=== PATIENT | male | born 1965 | race Caucasian/White ===

== ENCOUNTER 2025-01-22 23:38 | Inpatient (IN) ==
[2025-01-22 23:50] VITALS: TEMP 99.5
[2025-01-23 00:15] LABS: POC Urine Bilirubin Negative (Negative); POC Urine Blood 50 (Negative); POC Urine Glucose Normal (Normal); POC Urine Ketones 1+ (Small) (Negative); POC Urine Leukocytes Negative (Negative); POC Urine Nitrite Negative (Negative); POC Urine Protein Trace (Negative); POC Urine Urobilinogen Normal (Normal); POC Urine pH 5 (4.5-7.5)
[2025-01-23 00:24] LABS: Appearance Urine Clear (Clear); Bacteria Urine Automated None Seen (None Seen); Bilirubin Urine Negative (Negative); Blood Urine 1+ (Negative); Cast Urine Automated 0-2 /lpf (0-2); Color Urine Yellow; Epithelial Cell Urine Auto 0-2 /hpf (0-2); Glucose Urine UA Negative (Negative); Ketones Urine 1+ (Negative); Leukocyte Esterase Urine Negative (Negative); Nitrite Urine Negative (Negative); Protein Urine Negative (Negative); Specific Gravity Urine 1.016 (1.000-1.030); Urobilinogen Urine Negative (Negative); WBC Urine Automated 0-5 /hpf (0-5); pH Urine 5.5 (4.5-7.5)
[2025-01-23] MEDS: KETOROLAC 30 MG/ML VIAL IV STA (00:42)
[2025-01-23 00:53] LABS: Basophils # (auto) 0.02 K/uL (0.00-0.20); Basophils % (auto) 0.2 %; Eosinophils # (auto) 0.03 K/uL (0.00-0.50); Eosinophils % (auto) 0.2 %; Hematocrit (blood only) 37.8 % (42.0-52.0); Hemoglobin 12.6 g/dl (14.0-18.0); Immature Granulocytes # (auto) 0.06 K/uL (0.01-0.20); Immature Granulocytes % (auto) 0.5 %; Lymphocytes # (auto) 1.23 K/uL (1.20-3.40); Lymphocytes % (auto) 9.4 %; Mean Corpuscular Hemoglobin 27.9 pg (25.0-34.0); Mean Corpuscular Hgb Conc 33.3 g/dL (32.0-36.0); Mean Corpuscular Volume 83.8 fL (80.0-100.0); Mean Platelet Volume 10.2 fL (9.4-12.4); Monocytes % (auto) 9.2 %; Neutrophils # (auto) 10.55 K/uL (1.40-6.50); Neutrophils % (auto) 80.5 %; Platelet Count 235 K/uL (130-400); RDW Coefficient of Variation 12.4 % (11.5-14.5); RDW Standard Deviation 37.4 fL (36.4-46.3); Red Blood Count 4.51 M/uL (4.70-6.10); White Blood Count 13.09 K/ul (4.8-10.8)
[2025-01-23 01:06] LABS: Albumin Globulin Ratio 1.6 (0.9-2); Albumin Level 4.1 gm/dl (3.4-5.0); BUN Creatinine Ratio 13.4 (10-20); Bilirubin,Total 0.9 mg/dl (0.2-1.0); Calcium 9.2 mg/dl (8.6-10.3); Creatinine Clr Calc Pharmacy 67.5 ml/min; Globulin 2.5 gm/dl (2.5-4.0); Potassium 3.6 mmol/L (3.5-5.1); Total Protein 6.6 gm/dl (6.0-8.3)
[2025-01-23] MEDS ORDERED: MoRPHine SULFATE 4 MG/ML 1 ML CARP\\VIAL IV PRN ×2 (01:14→01:27)
[2025-01-23] MEDS: ONDANSETRON INJ 2 MG/ML 2 ML VIAL IV STA (01:22)
[2025-01-23] MEDS: PANTOprazole 40 MG/10 ML SYR IV ONE (01:22)
[2025-01-23] MEDS: SODIUM CHLORIDE 0.9% 1,000 ML IV SCH (01:22)
[2025-01-23] MEDS ORDERED: oxyCODONE HCL IR 5 MG TAB (IMMEDIATE RELEASE) PO PRN (01:27)
[2025-01-23] MEDS ORDERED: PROMETHAZINE 6.25 MG/50.25 ML BAG IV PRN (01:27)
[2025-01-23] MEDS ORDERED: ACETAMINOPHEN 325 MG TAB PO PRN (01:27)
--- NOTE | 2025-01-23 02:18 | History & Physical Report ---
Date of Service January 23, 2025 Assessment & Plan (1) Complicated UTI (urinary tract infection): Plan: Complicated UTI Secondary to obstructive uropathy Recurrent kidney stones No sepsis for now New onset anemia possibly from hematuria Hyperglycemia rule out DM Admit to MedSurg Urine CS, Ceftriaxone Continue Flomax Strain urine Urology consult re: obstructive uropathy N.p.o. in anticipation of procedure Anemia workup, transfuse PRBC if hemoglobin less than 7 and or for symptomatic anemia Check hemoglobin A1c DVT prophylaxis. SCDs re: hematuria causing anemia Full code Patient requesting updates providers. Mr. Fely Cano, contact #[phone]. Text document was generated using [employer] voice recognition software. It may contain grammatical or spelling errors. Kindly contact undersigned for clarification of any documentation item in question. History of Present Illness Chief Complaint: Kidney stone Primary Care Provider: Jeniffer Howard MD (Patient has not met her.) History obtained from patient, family, and records. Medical history significant for urolithiasis. 1 month history of intermittent achy left flank pain with hematuria symptoms and passage of kidney stones. No fever, no chills. Patient refusing ER evaluation as per . Worsening symptoms noted 4 days ago. Patient consulted [facility] ER. CT abdomen pelvis showed 1. Acute left obstructive uropathy. Severe left hydronephrosis with a 0.5 cm stone obstructing the proximal left ureter on series 2 image 32. 2. Left nephrolithiasis. 3. Nonspecific circumferential bladder wall thickening. Recommend correlation with urinalysis. 4. Mildly enlarged prostate. Recommend correlation with serum PSA. Patient discharged on Flomax and pain Rx. Instructed to follow-up with urology outpatient. Improved symptoms with intake of medications despite not passing any stones at home. Patient felt confident about missing a dose of Flomax. Recurrence of achy left flank pain with chills last night. Patient returned to ER for evaluation. 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, visual lead Allergies Allergy/AdvReac Type Severity Reaction Status Date / Time No Known Allergies Allergy Verified 01/23/25 03:37 Home Medications Medication Instructions Recorded Confirmed Type No Known Home Medications 01/23/25 01/23/25 History Past Med/Surg History Problem List Complicated UTI (urinary tract infection) Acute pyelonephritis (Acute) Left ureteral stone (Acute) Hydronephrosis (Acute) Acute flank pain (Acute) Renal colic (Acute) No significant past medical history Family History Other Kidney stone Social History Smoking Status: Never smoker Hx Alcohol Use: No Hx Substance Use: Yes Last Used Substance: Days (ago) Last Used Substance Other:: 01/22/25, AM Substance Use Type Other:: medical marijuana Preferred Language: Bolivian Communication Ability: Effective Sr Vice President Required: No Beliefs That Will Affect Care: None Current Living Situation: Spouse Feels Safe at Home: Yes Assistive Devices: Glasses Assistive Devices Comment: readers Review of Systems Review of Systems: As per HPI, all other systems reviewed and negative Physical Exam Physical Exam: GENERAL: Comfortable, pleasant, no respiratory distress SKIN: Normal color, warm HEENT: [place] palpebral conjunctivae, no ptosis, dry buccal mucosa NECK : Supple, no tenderness CHEST : CTA, no tenderness HEART : RRR, no obvious murmurs ABDOMEN: Some distention, nontender EXTREMITIES : No LE swelling/tenderness, palpable pulses, no other conspicuous deformities noted NEUROLOGIC : Coherent, no facial asymmetry, no other gross focality Results & Data Results & Data Vital Signs (Past 12 Hours) Vital Signs Temp Pulse Resp BP Pulse Ox O2 Del Method 01/22/25 23:46 37.5 C 66 20 132/86 98 Room Air Laboratory Results Laboratory Results WBC 13.09 K/ul (4.8-10.8) H 01/23/25 00:37 RBC 4.51 M/uL (4.70-6.10) L 01/23/25 00:37 Hgb 12.6 g/dl (14.0-18.0) L 01/23/25 00:37 Hct 37.8 % (42.0-52.0) L 01/23/25 00:37 MCV 83.8 fL (80.0-100.0) 01/23/25 00:37 MCH 27.9 pg (25.0-34.0) 01/23/25 00:37 MCHC 33.3 g/dL (32.0-36.0) 01/23/25 00:37 RDW Std Deviation 37.4 fL (36.4-46.3) 01/23/25 00:37 RDW Coeff of [place] 12.4 % (11.5-14.5) 01/23/25 00:37 Plt Count 235 K/uL (130-400) 01/23/25 00:37 MPV 10.2 fL (9.4-12.4) 01/23/25 00:37 Immature Gran % (Auto) 0.5 % 01/23/25 00:37 Neut % (Auto) 80.5 % 01/23/25 00:37 Lymph % (Auto) 9.4 % 01/23/25 00:37 [place] % (Auto) 9.2 % 01/23/25 00:37 Eos % (Auto) 0.2 % 01/23/25 00:37 Baso % (Auto) 0.2 % 01/23/25 00:37 Neut # (Auto) 10.55 K/uL (1.40-6.50) H 01/23/25 00:37 Lymph # (Auto) 1.23 K/uL (1.20-3.40) 01/23/25 00:37 [place] # (Auto) 1.20 K/uL (0.11-0.59) H 01/23/25 00:37 Eos # (Auto) 0.03 K/uL (0.00-0.50) 01/23/25 00:37 Baso # (Auto) 0.02 K/uL (0.00-0.20) 01/23/25 00:37 Immature Gran # (Auto) 0.06 K/uL (0.01-0.20) 01/23/25 00:37 Sodium 134 mmol/L (136-145) L 01/23/25 00:37 Potassium 3.6 mmol/L (3.5-5.1) 01/23/25 00:37 Chloride 101 mmol/L (98-107) 01/23/25 00:37 Carbon Dioxide 27 mmol/L (21-32) 01/23/25 00:37 Anion Gap 6 (3-11) 01/23/25 00:37 BUN 17 mg/dl (6-23) 01/23/25 00:37 Creatinine 1.27 mg/dl (0.6-1.4) 01/23/25 00:37 Est Cr Clr Drug Dosing 67.5 ml/min 01/23/25 00:37 eGFR 65.49 01/23/25 00:37 BUN/Creatinine Ratio 13.4 (10-20) 01/23/25 00:37 Glucose 122 mg/dl (70-99(Fasting)) H 01/23/25 00:37 Calcium 9.2 mg/dl (8.6-10.3) 01/23/25 00:37 Total Bilirubin 0.9 mg/dl (0.2-1.0) 01/23/25 00:37 AST 23 U/L (13-39) 01/23/25 00:37 ALT 15 U/L (7-52) 01/23/25 00:37 Alkaline Phosphatase 62 U/L (34-104) 01/23/25 00:37 Total Protein 6.6 gm/dl (6.0-8.3) 01/23/25 00:37 Albumin 4.1 gm/dl (3.4-5.0) 01/23/25 00:37 Globulin 2.5 gm/dl (2.5-4.0) 01/23/25 00:37 Albumin/Globulin Ratio 1.6 (0.9-2) 01/23/25 00:37 Urine Color Yellow 01/23/25 00:06 Urine Appearance Clear (Clear) 01/23/25 00:06 Urine pH 5.5 (4.5-7.5) 01/23/25 00:06 POC Urine pH 5 (4.5-7.5) 01/23/25 00:09 Ur Specific [place] 1.016 (1.000-1.030) 01/23/25 00:06 Urine Protein Negative (Negative) 01/23/25 00:06 POC Urine Protein Trace (Negative) H 01/23/25 00:09 Urine Glucose (UA) Negative (Negative) 01/23/25 00:06 POC Ur Glucose (UA) Normal (Normal) 01/23/25 00:09 Urine Ketones 1+ (Negative) H 01/23/25 00:06 POC Urine Ketones 1+ (Small) (Negative) H 01/23/25 00:09 Urine Blood 1+ (Negative) H 01/23/25 00:06 POC Urine Blood 50 (Negative) H 01/23/25 00:09 Urine Nitrite Negative (Negative) 01/23/25 00:06 POC Urine Nitrite Negative (Negative) 01/23/25 00:09 Urine Bilirubin Negative (Negative) 01/23/25 00:06 POC Urine Bilirubin Negative (Negative) 01/23/25 00:09 Urine Urobilinogen Negative (Negative) 01/23/25 00:06 POC Urine Urobilinogen Normal (Normal) 01/23/25 00:09 Ur Leukocyte Esterase Negative (Negative) 01/23/25 00:06 POC U Leukocyte Esteras Negative (Negative) 01/23/25 00:09 Urine WBC (Auto) 0-5 /hpf (0-5) 01/23/25 00:06 Urine RBC (Auto) 3-5 /hpf (0-2) H 01/23/25 00:06 U Hyaline Cast (Auto) 0-2 /lpf (0-2) 01/23/25 00:06 U Epithel Cells (Auto) 0-2 /hpf (0-2) 01/23/25 00:06 Urine Bacteria (Auto) None Seen (None Seen) 01/23/25 00:06 CT abdomen pelvis 1. On comparison with previous CT , there interval inferior displacement of calculus into left upper ureter at L4/L5 vertebral level causing upstream gross hydroureteronephrosis . 2. Interval increase in left perinephric /left paracolic gutter fat stranding and thickening of left posterior renal fascia-- Secondary acute pyelonephritis. 3. Tiny calculus seen in left kidney interpolar calyx measuring 3 mm in size. 4. Stable Uncomplicated sigmoid colon diverticulosis. 5. Stable chronic cystitis. 6. Stable mild prostatomegaly.
--- NOTE | 2025-01-23 02:23 | CT Scan Report ---
EXAM: CT abd pelvis wo con CLINICAL HISTORY: flank pain TECHNIQUE: Contiguous axial images were obtained from the level of the diaphragm to the pubic symphysis without intravenous or oral contrast. Coronal and sagittal reconstructions were likewise performed and indicated to increase the sensitivity for detecting clinically relevant pathology. CT scan was performed according to ALARA (as low as reasonably achievable). COMPARISON: 01/19/2025 11:14:00 STAFF ANTISUBMARINE OFFICER FINDINGS: The visualized lung bases are clear. Evaluation of the abdominal and pelvic visceral organs is limited without intravenous contrast. The unenhanced liver, spleen, pancreas, and adrenal glands are grossly unremarkable. The gallbladder is present. The kidneys are normal in size and attenuation. Tiny calculus seen in left kidney interpolar calyx measuring 3 mm in size. A 5.6mm(HU~798) calculus seen in left upper ureter at L4/L5 vertebral level causing upstream gross hydroureteronephrosis with perinephric fat stranding. Fat stranding also seen in left paracolic gutter and thickening of left posterior renal fascia. No adenopathy or fluid collections are seen. No evidence of focal or diffuse bowel wall thickening or evidence of bowel obstruction is seen. Multiple small diverticuli of 2mm seen in sigmoid colon. No inflammatory changes. The appendix is visualized in the right lower quadrant and appears within normal limits. The aorta is normal in caliber. The urinary bladder shows diffuse wall thickening. Mild prostatonegaly with calcification. No aggressive appearing osseous lesions are identified. IMPRESSION: 1. On comparison with previous CT , there interval inferior displacement of calculus into left upper ureter at L4/L5 vertebral level causing upstream gross hydroureteronephrosis . 2. Interval increase in left perinephric /left paracolic gutter fat stranding and thickening of left posterior renal fascia-- Secondary acute pyelonephritis. 3. Tiny calculus seen in left kidney interpolar calyx measuring 3 mm in size. 4. Stable Uncomplicated sigmoid colon diverticulosis. 5. Stable chronic cystitis. 6. Stable mild prostatomegaly. Electronically signed by Zachary Fernandez 01-23-2025 02:19 AM
[2025-01-23] MEDS ORDERED: LORazepam 0.5 MG TAB PO PRN (02:41)
[2025-01-23] MEDS: cefTRIAXone SODIUM 2,000 MG/50 ML BAG IV STA (03:00)
[2025-01-23] MEDS: SODIUM CHLORIDE 0.9% 1,000 ML IV ONE (03:21)
--- NOTE | 2025-01-23 03:51 | Emergency Department Note ---
History of Present Illness General Chief complaint: Kidney Stone Stated complaint: KIDNEY STONE Time Seen by Provider: 01/23/25 00:27 History of Present Illness Maximum Pain Intensity: 2 This is a 59-year-old male presenting to the emergency department for evaluation of left flank pain. The patient was seen and evaluated a few days ago in this department and diagnosed with an obstructing 5 mm ureteral stone. Patient has been taking his at home medications and did have improvement of symptoms yesterday. Pain returned today and is severe. He has felt hot and cold all day, and may have had a fever. He rates his discomfort an 8/10 at worst. It is currently a 2/10. No chest pain, chest tightness, shortness of breath. Home Medications Medication Instructions Recorded Confirmed Type No Known Home Medications 01/23/25 01/23/25 History Allergies Allergy/AdvReac Type Severity Reaction Status Date / Time No Known Allergies Allergy Verified 01/23/25 03:37 Past Med/Surg History Problem List (Updated 01/23/25 @ 03:51 by Oscar Figueroa PA-C) Acute pyelonephritis (Acute) Left ureteral stone (Acute) Hydronephrosis (Acute) Acute flank pain (Acute) Renal colic (Acute) No significant past medical history Family History Other Kidney stone Social History Smoking Status: Never smoker Hx Alcohol Use: No Hx Substance Use: Yes Last Used Substance: Days (ago) Last Used Substance Other:: 01/22/25, AM Substance Use Type Other:: medical marijuana Preferred Language: Bolivian Communication Ability: Effective Sybase Developer Required: No Beliefs That Will Affect Care: None Current Living Situation: Spouse Feels Safe at Home: Yes Assistive Devices: Glasses Assistive Devices Comment: readers Review of Systems A total of 10 systems reviewed and were otherwise negative Physical Exam Vital Signs Vital Signs - 24 hr 01/22/25 23:46 01/23/25 02:00 Temperature 37.5 C Temperature Source Oral Pulse Rate 66 Pulse Rate [Apical] 63 Pulse Rhythm [Apical] Regular Respiratory Rate 20 16 Respiratory Effort / Characteristics Non-Labored Spontaneous Respiratory Depth Normal Respiratory Pattern Regular Blood Pressure 132/86 Blood Pressure [Right Arm] 129/75 Blood Pressure Mean 101 Blood Pressure Mean [Right Arm] 93 Pulse Oximetry 98 98 Oxygen Delivery Method Room Air Room Air Sepsis Recent Fever Within 48 Hours Yes Sepsis New/Unexplained Change in Mental Status No Sepsis Action Taken by Nursing No Action Required VITALS: Vitals are noted on the nurse's note and reviewed by myself. Vital signs stable. GENERAL: Well-developed, well-nourished, white male, who is in no acute distress and resting comfortably. Patient is cooperative with the examination. HEAD: Normocephalic atraumatic. MOUTH: Mucous membranes moist. Tonsils are not enlarged. Pharynx without erythema, blood, or exudate. Uvula midline. Airway patent. NECK: Supple without nuchal rigidity. No lymphadenopathy. No thyromegaly. Cervical spine is nontender. HEART: Regular rate and rhythm without murmurs gallops or rubs. LUNGS: Clear to auscultation bilaterally without wheezes, rales or rhonchi. No retractions or accessory muscle use. ABDOMEN: Positive normal bowel sounds x 4. Soft, nontender, without masses or organomegaly. No guarding or rebound tenderness. MUSCULOSKELETAL: No muscle atrophy, erythema, or edema noted. Full range of motion in all extremities. Course Administered Medications Sodium Chloride (Nss) 1,000 mls @ 100 mls/hr IV .Q10H ONE Stop: 01/23/25 13:29 Last Admin: 01/23/25 03:21 Dose: 100 mls/hr Documented By: OPHELIA Discontinued Medications Pantoprazole Sodium (Protonix) 40 mg in 10 mls @ 5 mls/min IV NOW ONE Stop: 01/23/25 01:15 Last Admin: 01/23/25 01:22 Dose: 5 mls/min Documented By: HARPER Sodium Chloride (Nss) 1,000 mls @ 999 mls/hr IV .Q1H1M DILLON Stop: 01/23/25 03:15 Last Infusion: 01/23/25 03:25 Dose: Infused Documented By: Admin: 01/23/25 02:14 Dose: 999 mls/hr Documented By: Infusion: 01/23/25 02:13 Dose: Infused Documented By: Admin: 01/23/25 01:22 Dose: 999 mls/hr Documented By: HARPER Ceftriaxone Sodium (Rocephin) 2,000 mg in 50 mls @ 100 mls/hr IV NOW STA Stop: 01/23/25 02:57 Last Infusion: 01/23/25 03:33 Dose: Infused Documented By: Admin: 01/23/25 03:00 Dose: 100 mls/hr Documented By: EMY Ketorolac Tromethamine (Ketorolac 30 Mg/Ml Vial) 30 mg IV NOW STA Stop: 01/23/25 00:41 Last Admin: 01/23/25 00:42 Dose: 30 mg Documented By: NALINIB Ondansetron HCl (Ondansetron Inj 2 Mg/Ml 2 Ml Vial) 4 mg IV NOW STA Stop: 01/23/25 01:15 Last Admin: 01/23/25 01:22 Dose: 4 mg Documented By: HARPER Medical Decision Making Differential Diagnosis Differential diagnosis: Etiologies such as shingles, pyelonephritis/UTI, renal colic, appendicitis, diverticulitis, mesenteric ischemia, torsion, aortic pathology, infections, inflammatory bowel disease, bowel obstruction, PUD, biliary pathology, as well as others were entertained. Laboratory Data 01/23/25 00:37 01/23/25 00:37 Lab Results 01/23/25 01/23/25 01/23/25 Range/Units 00:06 00:09 00:37 WBC 13.09 H (4.8-10.8) K/ul RBC 4.51 L (4.70-6.10) M/uL Hgb 12.6 L (14.0-18.0) g/dl Hct 37.8 L (42.0-52.0) % MCV 83.8 (80.0-100.0) fL MCH 27.9 (25.0-34.0) pg MCHC 33.3 (32.0-36.0) g/dL RDW Std Deviation 37.4 (36.4-46.3) fL RDW Coeff of [place] 12.4 (11.5-14.5) % Plt Count 235 (130-400) K/uL MPV 10.2 (9.4-12.4) fL Immature Gran % (Auto) 0.5 % Neut % (Auto) 80.5 % Lymph % (Auto) 9.4 % [place] % (Auto) 9.2 % Eos % (Auto) 0.2 % Baso % (Auto) 0.2 % Neut # (Auto) 10.55 H (1.40-6.50) K/uL Lymph # (Auto) 1.23 (1.20-3.40) K/uL [place] # (Auto) 1.20 H (0.11-0.59) K/uL Eos # (Auto) 0.03 (0.00-0.50) K/uL Baso # (Auto) 0.02 (0.00-0.20) K/uL Immature Gran # (Auto) 0.06 (0.01-0.20) K/uL Sodium 134 L (136-145) mmol/L Potassium 3.6 (3.5-5.1) mmol/L Chloride 101 (98-107) mmol/L Carbon Dioxide 27 (21-32) mmol/L Anion Gap 6 (3-11) BUN 17 (6-23) mg/dl Creatinine 1.27 (0.6-1.4) mg/dl Est Cr Clr Drug Dosing 67.5 ml/min eGFR 65.49 BUN/Creatinine Ratio 13.4 (10-20) Glucose 122 H (70-99(Fasting)) mg/dl Calcium 9.2 (8.6-10.3) mg/dl Total Bilirubin 0.9 (0.2-1.0) mg/dl AST 23 (13-39) U/L ALT 15 (7-52) U/L Alkaline Phosphatase 62 (34-104) U/L Total Protein 6.6 (6.0-8.3) gm/dl Albumin 4.1 (3.4-5.0) gm/dl Globulin 2.5 (2.5-4.0) gm/dl Albumin/Globulin Ratio 1.6 (0.9-2) Urine Color Yellow Urine Appearance Clear (Clear) Urine pH 5.5 (4.5-7.5) POC Urine pH 5 (4.5-7.5) Ur Specific [place] 1.016 (1.000-1.030) Urine Protein Negative (Negative) POC Urine Protein Trace H (Negative) Urine Glucose (UA) Negative (Negative) POC Ur Glucose (UA) Normal (Normal) Urine Ketones 1+ H (Negative) POC Urine Ketones 1+ (Small) H (Negative) Urine Blood 1+ H (Negative) POC Urine Blood 50 H (Negative) Urine Nitrite Negative (Negative) POC Urine Nitrite Negative (Negative) Urine Bilirubin Negative (Negative) POC Urine Bilirubin Negative (Negative) Urine Urobilinogen Negative (Negative) POC Urine Urobilinogen Normal (Normal) Ur Leukocyte Esterase Negative (Negative) POC U Leukocyte Esteras Negative (Negative) Urine WBC (Auto) 0-5 (0-5) /hpf Urine RBC (Auto) 3-5 H (0-2) /hpf U Hyaline Cast (Auto) 0-2 (0-2) /lpf U Epithel Cells (Auto) 0-2 (0-2) /hpf Urine Bacteria (Auto) None Seen (None Seen) Imaging Data Radiologist's Impression: Abdomen/Pelvis CT 01/23/25 00:24 EXAM: CT abd pelvis wo con CLINICAL HISTORY: flank pain TECHNIQUE: Contiguous axial images were obtained from the level of the diaphragm to the pubic symphysis without intravenous or oral contrast. Coronal and sagittal reconstructions were likewise performed and indicated to increase the sensitivity for detecting clinically relevant pathology. CT scan was performed according to ALARA (as low as reasonably achievable). COMPARISON: 01/19/2025 11:14:00 MANAGER SEARCH ENGINE FINDINGS: The visualized lung bases are clear. Evaluation of the abdominal and pelvic visceral organs is limited without intravenous contrast. The unenhanced liver, spleen, pancreas, and adrenal glands are grossly unremarkable. The gallbladder is present. The kidneys are normal in size and attenuation. Tiny calculus seen in left kidney interpolar calyx measuring 3 mm in size. A 5.6mm(HU~798) calculus seen in left upper ureter at L4/L5 vertebral level causing upstream gross hydroureteronephrosis with perinephric fat stranding. Fat stranding also seen in left paracolic gutter and thickening of left posterior renal fascia. No adenopathy or fluid collections are seen. No evidence of focal or diffuse bowel wall thickening or evidence of bowel obstruction is seen. Multiple small diverticuli of 2mm seen in sigmoid colon. No inflammatory changes. The appendix is visualized in the right lower quadrant and appears within normal limits. The aorta is normal in caliber. The urinary bladder shows diffuse wall thickening. Mild prostatonegaly with calcification. No aggressive appearing osseous lesions are identified. IMPRESSION: 1. On comparison with previous CT , there interval inferior displacement of calculus into left upper ureter at L4/L5 vertebral level causing upstream gross hydroureteronephrosis . 2. Interval increase in left perinephric /left paracolic gutter fat stranding and thickening of left posterior renal fascia-- Secondary acute pyelonephritis. 3. Tiny calculus seen in left kidney interpolar calyx measuring 3 mm in size. 4. Stable Uncomplicated sigmoid colon diverticulosis. 5. Stable chronic cystitis. 6. Stable mild prostatomegaly. Electronically signed by Zachary Fernandez 01-23-2025 02:19 AM MDM Narrative Physical exam and history were performed. Nursing notes, EMR, and Medication List were personally reviewed. No social concerns were identified as barriers to patients care. History was provided by the Patient. Patient appears to have left side flank pain bringing him to the ER. He does have a known kidney stone, and is not doing well at home. IV access was established and labs were obtained. Patient was hydrated with normal saline and given IV Toradol, IV morphine, IV Protonix, and IV Zofran. Patient was sent to CT scan for imaging. Patient's blood work is as above and was reviewed. He does have an elevated white count of 13,000. He is slightly anemic at 12.6. Urine is with blood, which was expected. Lipase and transaminases are not diagnostic. Escalation of care was considered, and felt necessary. I did speak with the on- call [facility] hospitalist, who agreed to evaluate the patient here in the ER. The patient CT scan did return with findings consistent with obstructing stone with new pyelonephritis. Hospitalist has already ordered antibiotics. Please see their dictation for further patient course, plan, and disposition. The chart was completed utilizing [employer] Speech Voice Recognition Software. Grammatical errors, random word insertions, pronoun errors, and incomplete sentences are an occasional consequence of this system due to software limitations, ambient noise, and hardware issues. Any formal questions or concerns about the content, text, or information contained within the body of this dictation should be directly addressed to the provider for clarification. Impression & Plan Left ureteral stone, Acute flank pain, Renal colic, Hydronephrosis, Acute pyelonephritis Discharge Plan Visit Data Chief Complaint: Kidney Stone Stated Complaint: KIDNEY STONE ED Provider: Elma Redd ED Midlevel Provider: Oscar Figueroa Discharge Problem: Left ureteral stone, Acute flank pain, Renal colic, Hydronephrosis, Acute pyelonephritis Discharge Instructions Interventions: ED Discharge Assessment Last Done: 01/23/25 03:19
[2025-01-23 06:48] LABS: Reticulocyte % 0.7 % (0.50-2.00); Reticulocytes # 0.03 10^6/uL (0.020-0.100)
[2025-01-23 07:25] LABS: Folate (Folic Acid),Ser orPlas 19.94 ng/ml (>5.38)
[2025-01-23 07:43] LABS: Ferritin 94.2 ng/ml (8-388)
[2025-01-23 07:58] LABS: Estimated Average Glucose 128 mg/dl; Hemoglobin A1C 6.1 % (4.5-5.6)
--- NOTE | 2025-01-23 08:45 | Urology Consultation ---
<Statement entered by Too Hook MD - 01/23/25 13:19> 59-year-old male with ureteral stone. He would like to try to pass the stone with medical expulsive therapy. I have low suspicion for active infection at this time and renal function is acceptable. We will arrange outpatient follow- up. Date of Consultation January 23, 2025 Assessment & Plan (1) Left ureteral stone: (2) Hydronephrosis: (3) Acute flank pain: 59-year-old male admitted for acute left flank pain secondary to an obstructing 5.6 mm left ureteral stone. Patient afebrile, hemodynamically stable Labs reviewedcreatinine 1.27, WBC 13.09, hemoglobin 12.6 Urinalysis showed ketones, 1+ blood, 3-5 RBC/hpf, otherwise unremarkable CT reviewed and discusseddistal migration of the obstructing 5.6 mm left ureteral stone with resulting hydronephrosis, some perinephric stranding; additional nonobstructing left renal calculus Low suspicion of pyelonephritis clinically He reports no flank pain at present Reports he stopped Flomax and attributes recurrence of pain/symptoms to stopping medication Reviewed options for stone management including trial of passage with medical expulsive therapy versus surgical intervention with left ureteral stent placement acutely or outpatient surgical options if pain is controlled Patient declines left ureteral stent at this time and prefers to try to pass his stone and follow-up with urology outpatient He prefers ESWL if surgical intervention is needed, which he understands is an outpatient procedure No acute intervention planned at this time, patient can eat today Recommend discharge to home with Flomax and pain management, hydration and urine strainer when medically ready Recommend KUB prior to discharge for outpatient planning purposes Will arrange outpatient follow-up with urology will sign off, please contact our service with any additional questions or concerns History of Present Illness Reason for Consultation: Obstructive uropathy Requesting Physician: Dr. Clark Attending Physician: Tigre Lind MD History of Present Illness This is a 59-year-old male with past medical history including nephrolithiasis who recently presented to [facility] ED on 01/19/2025 for evaluation of left flank pain. He was diagnosed with a 5 mm obstructing stone in the proximal left ureter and was stable for discharge to home for trial of passage and outpatient management. He returned to ED on 01/23/2025 due to recurrence of left flank pain. On arrival, he was afebrile, hemodynamically stable. Lab work showed WBC 13.09, hemoglobin 12.6, creatinine 1.27. Urinalysis showed 1+ blood, 3-5 RBCs, otherwise negative. Workup included CT abdomen pelvis which demonstrated distal migration of the obstructing 5.6 mm left ureteral stone. He was admitted to the hospital medicine service for pain management. Urology is consulted for ob structive uropathy. Patient seen and examined in the emergency department. present. Patient reports pain is controlled at present. Denies fever, chills, nausea or vomiting. Reports he was feeling well after his initial ED visit and discontinued Flomax. He attributes recurrence of pain due to stopping Flomax. He reports he is voiding without difficulty at present. Reports prior stone h istory with spontaneous passage of stones. No prior surgical history of stones. 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 Required: No Beliefs That Will Affect Care: None Current Living Situation: Spouse Feels Safe at Home: Yes Assistive Devices: Glasses Assistive Devices Comment: readers Review of Systems Review of Systems: All systems reviewed & are unremarkable except as noted in HPI & below Physical Exam Constitutional: well developed and well nourished; no acute distress Respiratory: normal respiratory effort; no respiratory distress and no labored breathing Gastrointestinal (Abdomen): Inspection/Auscultation: abdomen normal to inspection Musculoskeletal: Head/Neck/Chest: normocephalic Neurologic: moves all extremities and awake Psychiatric: Orientation: alert and oriented x 3 Results & Data Vital Signs (Past 12 Hours) Vital Signs Temp Pulse Pulse Resp BP BP Pulse Ox 01/23/25 06:09 64 16 122/61 97 01/23/25 03:20 60 16 124/72 99 01/23/25 02:00 63 16 129/75 98 01/22/25 23:46 37.5 C 66 20 132/86 98 O2 Del Method 01/23/25 06:09 Room Air 01/23/25 03:20 Room Air 01/23/25 02:00 Room Air 01/22/25 23:46 Room Air PG Care Time/CCT Total # of Minutes Spent Total Time Spent with Patient: Total time spent is greater than 50% in coordination of care (as documented) at patient's floor/unit and/or counseling patient: Coding Level of Care Code 91774 IN/OBS CONSULT LVL 4,60M Diagnoses Left ureteral stone N20.1 Hydronephrosis N13.30 Acute flank pain R10.9
[2025-01-23] MEDS: MULTIVITAMIN TAB PO SCH (08:52)
--- NOTE | 2025-01-23 09:39 | XRay Report ---
KUB HISTORY: left ureteral stone COMPARISON STUDY: CT earlier today. FINDINGS: The small left ureteral calculus likely overlies the mid left SI joint. There is moderate r etained stool. No bowel obstruction seen. IMPRESSION: Small left ureteral calculus likely overlies the mid left SI joint. ACT 112: Negative or not required by law. The above report was generated using voice recognition software. It may contain grammatical, syntax o r spelling errors. Electronically signed by: Himanshu Snowden M.D. 01/23/2025 9:37 AM
--- NOTE | 2025-01-23 12:36 | Hospitalist Progress Note ---
Date of Service January 23, 2025 Assessment & Plan (1) Complicated UTI (urinary tract infection): Plan: per admitting service notes Left ureteral stone Evaluated by urology service, SHELDON Horn "Labs reviewedcreatinine 1.27, WBC 13.09, hemoglobin 12.6 Urinalysis showed ketones, 1+ blood, 3-5 RBC/hpf, otherwise unremarkable CT reviewed and discusseddistal migration of the obstructing 5.6 mm left ureteral stone with resulting hydronephrosis, some perinephric stranding; additional nonobstructing left renal calculus" Low suspicion for pyelonephritis clinically Patient declined inpatient ureteral stent placement at this time, and would like to trial passage of stone at home Discharge plan: Continue Flomax daily, as needed oxycodone for pain Patient advised to increase water intake Advised to return to ER immediately if with worsening pain, fevers or chills, problems with urination, blood in the urine, etc. Patient and significant other at bedside verbalized understanding and agreement Possible UTI Urine culture: Pending Blood cultures: Pending Low suspicion for pyelonephritis per urology service Will empirically treat with cefdinir twice a day for 10 days Will follow cultures Prostatomegaly Seen on CT abdomen and pelvis Will need further evaluation including PSA level as an outpatient Urology service informed New onset anemia possibly from hematuria Hemoglobin 14, becoming 12 Iron 41, B12 317, folate 19 Repeat CBC on follow-up with PCP Prediabetes A1c 6.1 Low-carb diet Will need close outpatient follow-up Disposition Discharge to home PCP follow-up in 1 week Urology follow-up in 1 week plan of care discussed with patient and his in detail and at length all questions answered they are understanding, agreeable, comfortable with the plan of care Admission and Anticipated Discharge Date Admission Date: January 23, 2025 Subjective Follow-up for left atrial stone, etc. Seen resting in bedside chair, comfortable, not in distress States he feels much better overall Left flank pain is mostly resolved No hematuria, problems with urination No fevers or chills No other new symptoms States he would like to be discharged today and will closely follow-up as an outpatient with urology service Review of Systems Review of Systems: all noted and negative except for above Physical Exam Physical Exam: General- oriented x 3, not in distress, speaks in sentences with no effort or accessory muscle use Eyes- anicteric Neck- no JVD Lungs- clear breath sounds bilaterally, no rales/wheezes Heart- normal rate, regular rhythm; no murmurs Abdomen- normal bowel sounds, nondistended, soft, nontender No CVA tenderness Extremities- no pretibial edema, no calf tenderness Neuro- alert, oriented x 3; no gross focal neurologic deficits Skin- warm & dry Results & Data Results & Data Vital Signs (Past 12 Hours) Vital Signs Pulse Resp BP Pulse Ox O2 Del Method 01/23/25 08:51 58 L 16 110/57 L 98 Room Air 01/23/25 06:09 64 16 122/61 97 Room Air 01/23/25 03:20 60 16 124/72 99 Room Air 01/23/25 02:00 63 16 129/75 98 Room Air all noted and reviewed including below
--- NOTE | 2025-01-23 12:51 | Discharge Summary ---
Discharge Summary Date of Service January 23, 2025 Principal Dx & Hospital Course #1 = Principal Diagnosis (1) Complicated UTI (urinary tract infection): per admitting service notes Left ureteral stone Evaluated by urology service, SHELDON Horn "Labs reviewedcreatinine 1.27, WBC 13.09, hemoglobin 12.6 Urinalysis showed ketones, 1+ blood, 3-5 RBC/hpf, otherwise unremarkable CT reviewed and discusseddistal migration of the obstructing 5.6 mm left ureteral stone with resulting hydronephrosis, some perinephric stranding; additional nonobstructing left renal calculus" Low suspicion for pyelonephritis clinically Patient declined inpatient ureteral stent placement at this time, and would like to trial passage of stone at home Discharge plan: Continue Flomax daily, as needed oxycodone for pain Patient advised to increase water intake Advised to return to ER immediately if with worsening pain, fevers or chills, problems with urination, blood in the urine, etc. Patient and significant other at bedside verbalized understanding and agreement Possible UTI Urine culture: Pending Blood cultures: Pending Low suspicion for pyelonephritis per urology service Will empirically treat with cefdinir twice a day for 10 days Will follow cultures Prostatomegaly Seen on CT abdomen and pelvis Will need further evaluation including PSA level as an outpatient Urology service informed New onset anemia possibly from hematuria Hemoglobin 14, becoming 12 Iron 41, B12 317, folate 19 Repeat CBC on follow-up with PCP Prediabetes A1c 6.1 Low-carb diet Will need close outpatient follow-up Disposition Discharge to home PCP follow-up in 1 week Urology follow-up in 1 week plan of care discussed with patient and his in detail and at length all questions answered they are understanding, agreeable, comfortable with the plan of care Notes For Next Care Provider Medication Changes From Visit Cefdinir twice daily x 10 days Admission HPI Per Admitting Provider History obtained from patient, family, and records. Medical history significant for urolithiasis. 1 month history of intermittent achy left flank pain with hematuria symptoms and passage of kidney stones. No fever, no chills. Patient refusing ER evaluation as per . Worsening symptoms noted 4 days ago. Patient consulted [facility] ER. CT abdomen pelvis showed 1. Acute left obstructive uropathy. Severe left hydronephrosis with a 0.5 cm stone obstructing the proximal left ureter on series 2 image 32. 2. Left nephrolithiasis. 3. Nonspecific circumferential bladder wall thickening. Recommend correlation with urinalysis. 4. Mildly enlarged prostate. Recommend correlation with serum PSA. Patient discharged on Flomax and pain Rx. Instructed to follow-up with urology outpatient. Improved symptoms with intake of medications despite not passing any stones at home. Patient felt confident about missing a dose of Flomax. Recurrence of achy left flank pain with chills last night. Patient returned to ER for evaluation. 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 Admission Exam Per Admitting Provider GENERAL: Comfortable, pleasant, no respiratory distress SKIN: Normal color, warm HEENT: [place] palpebral conjunctivae, no ptosis, dry buccal mucosa NECK : Supple, no tenderness CHEST : CTA, no tenderness HEART : RRR, no obvious murmurs ABDOMEN: Some distention, nontender EXTREMITIES : No LE swelling/tenderness, palpable pulses, no other conspicuous deformities noted NEUROLOGIC : Coherent, no facial asymmetry, no other gross focality Discharge Exam General- oriented x 3, not in distress, speaks in sentences with no effort or accessory muscle use Eyes- anicteric Neck- no JVD Lungs- clear breath sounds bilaterally, no rales/wheezes Heart- normal rate, regular rhythm; no murmurs Abdomen- normal bowel sounds, nondistended, soft, nontender No CVA tenderness Extremities- no pretibial edema, no calf tenderness Neuro- alert, oriented x 3; no gross focal neurologic deficits Skin- warm & dry Updated Medication List Medication Instructions Recorded Confirmed Type cefdinir 300 mg capsule 300 mg PO BID 10 days #20 caps 01/23/25 Rx oxycodone 5 mg tablet 5 - 10 mg (1 - 2 x 5 mg) PO QID 01/23/25 Rx PRN moderate to severe pain #14 tabs tamsulosin 0.4 mg capsule 0.4 mg PO HS #30 caps 01/23/25 Rx Hospital Stay Data Consultations 01/23/25 01:20 ED Decision to Admit Stat 01/23/25 02:38 Consult Urology Routine Diagnostic Imagining Performed Laboratory Results WBC 13.09 K/ul (4.8-10.8) H 01/23/25 00:37 RBC 4.51 M/uL (4.70-6.10) L 01/23/25 00:37 Hgb 12.6 g/dl (14.0-18.0) L 01/23/25 00:37 Hct 37.8 % (42.0-52.0) L 01/23/25 00:37 MCV 83.8 fL (80.0-100.0) 01/23/25 00:37 MCH 27.9 pg (25.0-34.0) 01/23/25 00:37 MCHC 33.3 g/dL (32.0-36.0) 01/23/25 00:37 RDW Std Deviation 37.4 fL (36.4-46.3) 01/23/25 00:37 RDW Coeff of [place] 12.4 % (11.5-14.5) 01/23/25 00:37 Plt Count 235 K/uL (130-400) 01/23/25 00:37 MPV 10.2 fL (9.4-12.4) 01/23/25 00:37 Immature Gran % (Auto) 0.5 % 01/23/25 00:37 Neut % (Auto) 80.5 % 01/23/25 00:37 Lymph % (Auto) 9.4 % 01/23/25 00:37 [place] % (Auto) 9.2 % 01/23/25 00:37 Eos % (Auto) 0.2 % 01/23/25 00:37 Baso % (Auto) 0.2 % 01/23/25 00:37 Reticulocyte % (Auto) 0.70 % (0.50-2.00) 01/23/25 06:15 Neut # (Auto) 10.55 K/uL (1.40-6.50) H 01/23/25 00:37 Lymph # (Auto) 1.23 K/uL (1.20-3.40) 01/23/25 00:37 [place] # (Auto) 1.20 K/uL (0.11-0.59) H 01/23/25 00:37 Eos # (Auto) 0.03 K/uL (0.00-0.50) 01/23/25 00:37 Baso # (Auto) 0.02 K/uL (0.00-0.20) 01/23/25 00:37 Reticulocyte # 0.030 10^6/uL (0.020-0.100) 01/23/25 06:15 Immature Gran # (Auto) 0.06 K/uL (0.01-0.20) 01/23/25 00:37 Sodium 134 mmol/L (136-145) L 01/23/25 00:37 Potassium 3.6 mmol/L (3.5-5.1) 01/23/25 00:37 Chloride 101 mmol/L (98-107) 01/23/25 00:37 Carbon Dioxide 27 mmol/L (21-32) 01/23/25 00:37 Anion Gap 6 (3-11) 01/23/25 00:37 BUN 17 mg/dl (6-23) 01/23/25 00:37 Creatinine 1.27 mg/dl (0.6-1.4) 01/23/25 00:37 Est Cr Clr Drug Dosing 67.5 ml/min 01/23/25 00:37 eGFR 65.49 01/23/25 00:37 BUN/Creatinine Ratio 13.4 (10-20) 01/23/25 00:37 Glucose 122 mg/dl (70-99(Fasting)) H 01/23/25 00:37 Estimat Average Glucose 128 mg/dl 01/23/25 06:15 Hemoglobin A1c 6.1 % (4.5-5.6) H 01/23/25 06:15 Calcium 9.2 mg/dl (8.6-10.3) 01/23/25 00:37 Iron 41 mcg/dl (35-175) 01/23/25 06:15 Transferrin 225 mg/dl (200-360) 01/23/25 06:15 Ferritin 94.2 ng/ml (8-388) 01/23/25 06:15 Total Bilirubin 0.9 mg/dl (0.2-1.0) 01/23/25 00:37 AST 23 U/L (13-39) 01/23/25 00:37 ALT 15 U/L (7-52) 01/23/25 00:37 Alkaline Phosphatase 62 U/L (34-104) 01/23/25 00:37 Total Protein 6.6 gm/dl (6.0-8.3) 01/23/25 00:37 Albumin 4.1 gm/dl (3.4-5.0) 01/23/25 00:37 Globulin 2.5 gm/dl (2.5-4.0) 01/23/25 00:37 Albumin/Globulin Ratio 1.6 (0.9-2) 01/23/25 00:37 Vitamin B12 317 pg/ml (180-914) 01/23/25 06:15 Folate 19.94 ng/ml (>5.38) 01/23/25 06:15 Urine Color Yellow 01/23/25 00:06 Urine Appearance Clear (Clear) 01/23/25 00:06 Urine pH 5.5 (4.5-7.5) 01/23/25 00:06 POC Urine pH 5 (4.5-7.5) 01/23/25 00:09 Ur Specific [place] 1.016 (1.000-1.030) 01/23/25 00:06 Urine Protein Negative (Negative) 01/23/25 00:06 POC Urine Protein Trace (Negative) H 01/23/25 00:09 Urine Glucose (UA) Negative (Negative) 01/23/25 00:06 POC Ur Glucose (UA) Normal (Normal) 01/23/25 00:09 Urine Ketones 1+ (Negative) H 01/23/25 00:06 POC Urine Ketones 1+ (Small) (Negative) H 01/23/25 00:09 Urine Blood 1+ (Negative) H 01/23/25 00:06 POC Urine Blood 50 (Negative) H 01/23/25 00:09 Urine Nitrite Negative (Negative) 01/23/25 00:06 POC Urine Nitrite Negative (Negative) 01/23/25 00:09 Urine Bilirubin Negative (Negative) 01/23/25 00:06 POC Urine Bilirubin Negative (Negative) 01/23/25 00:09 Urine Urobilinogen Negative (Negative) 01/23/25 00:06 POC Urine Urobilinogen Normal (Normal) 01/23/25 00:09 Ur Leukocyte Esterase Negative (Negative) 01/23/25 00:06 POC U Leukocyte Esteras Negative (Negative) 01/23/25 00:09 Urine WBC (Auto) 0-5 /hpf (0-5) 01/23/25 00:06 Urine RBC (Auto) 3-5 /hpf (0-2) H 01/23/25 00:06 U Hyaline Cast (Auto) 0-2 /lpf (0-2) 01/23/25 00:06 U Epithel Cells (Auto) 0-2 /hpf (0-2) 01/23/25 00:06 Urine Bacteria (Auto) None Seen (None Seen) 01/23/25 00:06 Blood Type A Positive 01/23/25 06:15 Antibody Screen NEGATIVE 01/23/25 06:15 Impressions Abdomen/Pelvis CT 01/23/25 00:24 EXAM: CT abd pelvis wo con CLINICAL HISTORY: flank pain TECHNIQUE: Contiguous axial images were obtained from the level of the diaphragm to the pubic symphysis without intravenous or oral contrast. Coronal and sagittal reconstructions were likewise performed and indicated to increase the sensitivity for detecting clinically relevant pathology. CT scan was performed according to ALARA (as low as reasonably achievable). 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 Evaluation of the abdominal and pelvic visceral organs is limited without intravenous contrast. The unenhanced liver, spleen, pancreas, and adrenal glands are grossly unremarkable. The gallbladder is present. The kidneys are normal in size and attenuation. Tiny calculus seen in left kidney interpolar calyx measuring 3 mm in size. A 5.6mm(HU~798) calculus seen in left upper ureter at L4/L5 vertebral level causing upstream gross hydroureteronephrosis with perinephric fat stranding. Fat stranding also seen in left paracolic gutter and thickening of left posterior renal fascia. No adenopathy or fluid collections are seen. No evidence of focal or diffuse bowel wall thickening or evidence of bowel obstruction is seen. Multiple small diverticuli of 2mm seen in sigmoid colon. No inflammatory changes. The appendix is visualized in the right lower quadrant and appears within normal limits. The aorta is normal in caliber. The urinary bladder shows diffuse wall thickening. Mild prostatomegaly with calcification. No aggressive appearing osseous lesions are identified. IMPRESSION: 1. On comparison with previous CT , there interval inferior displacement of calculus into left upper ureter at L4/L5 vertebral level causing upstream gross hydroureteronephrosis . 2. Interval increase in left perinephric /left paracolic gutter fat stranding and thickening of left posterior renal fascia-- Secondary acute pyelonephritis. 3. Tiny calculus seen in left kidney interpolar calyx measuring 3 mm in size. 4. Stable Uncomplicated sigmoid colon diverticulosis. 5. Stable chronic cystitis. 6. Stable mild prostatomegaly. Electronically signed by Zachary Fernandez 01-23-2025 02:19 AM KUB X-Ray 01/23/25 09:00 KUB HISTORY: left ureteral stone COMPARISON STUDY: CT earlier today. FINDINGS: The small left ureteral calculus likely overlies the mid left SI froy int. There is moderate retained stool. No bowel obstruction seen. IMPRESSION: Small left ureteral calculus likely overlies the mid left SI joint. ACT 112: Negative or not required by law. The above report was generated using voice recognition software. It may contain grammatical, syntax or spelling errors. Electronically signed by: Himanshu Snowden M.D. 01/23/2025 9:37 AM Pending Results Patient Have Any Pending Studies at Discharge: Yes Discharge Instructions Given to Patient (Per Discharging Provider) PLEASE REFER TO YOUR NEW MEDICATION LIST AND FOLLOW INSTRUCTIONS CAREFULLY. YOUR NEW MEDICATION INCLUDE: Cefdinir-antibiotic for possible urinary tract infection Continue to take Flomax daily and as needed oxycodone for pain. You are found to have prostate enlargement. This needs to be further investigated and followed up as an outpatient with your urologist. You will need a PSA level checked. Please follow-up with the urologist next week. You are also found to have an A1c of 6.1, which means that you are a prediabetic. Please follow a low-carb diet, and increase exercise. This needs to be followed up closely by your primary care physician. PLEASE CALL YOUR PRIMARY CARE PHYSICIAN, Or the urologist, OR RETURN TO THE ER IF WITH WORSENING OF SYMPTOMS, INCLUDING Worsening flank/abdominal pain, fevers or chills, problems with urination, blood in your urine, etc. Follow-up with urology clinic, Dr. Too Hook or SHELDON Horn in 1 week. The clinic should be calling you soon for the appointment schedule. If you have not heard from them within 24 hours, please call their clinic. Contact information outlined above. FOLLOW UP WITH PRIMARY CARE PHYSICIAN In 1 week. Total Time Total Time Spent Total Time Spent (In Minutes): 45 minutes
[2025-01-23 13:01] VITALS: BP 142/73; PULSE 63; RESP 17; O2SAT 99
[2025-01-23] MEDS ORDERED: TAMSULOSIN HCL 0.4 MG CAP PO SCH (21:00)
[2025-01-24] MEDS ORDERED: cefTRIAXone SODIUM 2,000 MG/50 ML BAG IV SCH (03:00)
== END 2025-01-23 13:01 | disposition home or self-care (01) | DRG 690 ==
LOC: ED 23:38 → EDINP 01-23 02:19